=== PATIENT | male | born 1980 | race American Indian/Alaskan Native ===

== ENCOUNTER 2017-12-26 18:02 | Emergency (ER) | payer SELFPAY ==
[2017-12-26 18:42] VITALS: BP 121/93
--- NOTE | 2017-12-27 00:31 | Emergency Department Report ---
ED General Adult HPI - General Chief complaint: Headache Stated complaint: JIN/FEVER Time Seen by Provider: 12/27/17 00:25 Source: patient Mode of arrival: Ambulatory Limitations: No Limitations - History of Present Illness Initial comments: 37-year-old -Citizen Of [place] male comes to the emergency room stating that he had dental work on 12/23/2017 and now has a headache reports a fever after tooth being pulled. Patient reports his been nauseated has a nasty taste in his mouth headache and vomiting. Patient reports that he was placed on clindamycin [place] and ibuprofen. Patient reports that he stopped taking the clindamycin and started back today as he thought that it was the clindamycin that was making him feel bad. Patient reports that he's been able to drink and eat hot fries but has been nauseated and vomited earlier today. Patient complains of a headache and hiccups. He has a dental appointment tomorrow at 1: 00 to be followed up by the oral surgeon. -: This afternoon Location: head Associated Symptoms: fever/chills (subjective fever), nausea/vomiting - Related Data Allergies Allergy/AdvReac Type Severity Reaction Status Date / Time No Known Allergies Allergy Unverified 12/26/17 18:38 ED Review of Systems ROS: Stated complaint: JIN/FEVER Other details as noted in HPI Constitutional: fever (subjective) Eyes: denies: eye pain, eye discharge, vision change ENT: denies: ear pain, throat pain Respiratory: denies: cough, shortness of breath, wheezing Cardiovascular: denies: chest pain, palpitations Gastrointestinal: nausea (resolved), vomiting (resolved) Genitourinary: denies: urgency, dysuria Neurological: headache ED Past Medical Hx - Past Medical History Previous Medical History?: Yes Hx Hypertension: Yes - Surgical History Past Surgical History?: Yes Additional Surgical History: Flomot tooth - Social History Smoking Status: Current Every Day Smoker Substance Use Type: Alcohol, Marijuana, Prescribed ED Physical Exam - General Limitations: No Limitations General appearance: alert, in no apparent distress - Head Head exam: Present: atraumatic, normocephalic - Eye Eye exam: Present: normal appearance - ENT ENT exam: Present: other (no swelling or tenderness to the right upper jaw,) - Respiratory Respiratory exam: Present: normal lung sounds bilaterally. Absent: respiratory distress - Cardiovascular Cardiovascular Exam: Present: regular rate, normal rhythm. Absent: systolic murmur, diastolic murmur, rubs, gallop - GI/Abdominal GI/Abdominal exam: Present: soft, normal bowel sounds - Neurological Exam Neurological exam: Present: alert, oriented X3 - Psychiatric Psychiatric exam: Present: normal affect, normal mood - Skin Skin exam: Present: warm, dry, intact, normal color. Absent: rash ED Course Vital Signs 12/26/17 18:38 Temperature 99.3 F Pulse Rate 78 Respiratory 20 Rate Blood Pressure 121/93 O2 Sat by Pulse 99 Oximetry ED Medical Decision Making - Medical Decision Making Patient has been evaluated by this provider fast track. I discussed the patient that he needs to continue with the clindamycin and Zofran as needed ibuprofen for pain. Discussed patient he may want to hold out on the [place] since he does not have much pain and that it could be possibly making him nauseated our feeling down. Because the patient he needs to keep his appointment for tomorrow with the oral surgeon. Patient verbalized understanding. Critical care attestation.: If time is entered above; I have spent that time in minutes in the direct care of this critically ill patient, excluding procedure time. ED Disposition Clinical Impression: Headache Qualifiers: Headache type: unspecified Headache chronicity pattern: acute headache Intractability: intractable Qualified Code(s): R51 - Headache Disposition: DC- TO HOME OR SELFCARE Is pt being admited?: No Does the pt Need Aspirin: No Condition: Stable Instructions: Acute Headache (ED) Additional Instructions: Please continue all medications at her dentist has prescribed. Please keep your appointment with her oral surgeon tomorrow. He did not have to take the [place] this could be making you feel uncomfortable and could cause hiccups. Referrals: PRIMARY CARE, [Primary Care Provider] - 3-5 Days your,dentist [Other] - 3-5 Days Forms: Work/School Release Form(ED)
== END 2017-12-27 00:46 | disposition home or self-care (01) ==
LOC: ED 18:02
DX: R51 Headache (principal); I10 Essential (primary) hypertension
CPT/HCPCS: 99282